=== PATIENT | male | born 1975 | race Caucasian/White ===

== ENCOUNTER → 2016-10-20 | Outpatient (CLI) | payer BC ==
[2016-10-20 10:28] LABS: BLOOD UREA NITROGEN 14 mg/dl (7-18); BUN/CREATININE RATIO 15.1 (10-20); CALCIUM 8.8 mg/dl (8.5-10.1); CARBON DIOXIDE 28 mmol/L (21-32); CHLORIDE 105 mmol/L (98-107); GLUCOSE 107 mg/dl (70-99); POTASSIUM 4.1 mmol/L (3.5-5.1); SODIUM 140 mmol/L (136-145)
[2016-10-20 10:41] LABS: THYROID STIMULATING HORMONE 0.725 uIu/ml (0.300-4.500)
--- NOTE | 2016-10-20 12:21 | EXERCISE STRESS ECHO ---
*NOTICE TO RECEIVING REPUBL[employer] AGENCY This information is strictly Confidential and protected under [place] law. [place] law prohibits you from making any further disclosure of this information unless further disclosure is expressly permitted by the written consent of the person to whom it pertains or is authorized by law. A general authorization for the release of medical or other information is not sufficient for this purpose. Hospital accepts no responsibility if the information is made available to any other person, INCLUDING THE PATIENT. Interpretation Summary * Name: KALANI GRIJALVA Study Date: 10/20/2016 09:58 AM BP: 131/78 mmHg * Patient Location: [facility] HR: 73 * : 1975 (M/d/yyyy) Gender: Male Height: 72 in * Age: 41 yrs Ethnicity: CA Weight: 185 lb * Ordering Physician: Sandra Landers * Performed By: Carlton Bradley RCS * * Reason For Study: CHEST PAIN * BSA: 2.1 m2 * -- Conclusions -- * 1. Negative exercise stress echo for ischemia at 97% MPHR. * 2. Negative stress ECG for ischemia. No stress induced arrhythmias. * 3. Normal functional capacity. Achieved 10.6 METs. Normal hemodynamic response to exercise. * 4. Normal resting LV function. LVEF 55-60%. Borderline dilated RV with normal RV function. No significant valvular pathology. * 5. No prior studies for comparison. Procedure Details * ECHOEX, CPT #[id number] * ECHO COLOR FLOW, CPT #[id number] * ECHO DOPPLER, CPT #[id number] Left Ventricle * The left ventricle is grossly normal size. * There is normal left ventricular wall thickness. * Ejection Fraction = 55-60%. * Resting wall motion: Normal. Stress wall motion: Appropriate increase in Left ventricular systolic function and decrease in cavity size. No stress induced segmental wall motion abnormalities. * The left ventricular ejection fraction increases normally with stress. The left ventricular end-systolic cavity size reduces post-stress (normal response). The left ventricular wall motion with stress is normal. Right Ventricle * The right ventricle is borderline dilated. * The right ventricular systolic function is normal. Atria * The left atrial size is normal. * Right atrial size is normal. * No ASD detected; PFO is not assessed. Mitral Valve * The mitral valve is grossly normal. * There is no mitral valve stenosis. * Significant mitral regurgitation is absent. Tricuspid Valve * The tricuspid valve is not well visualized, but is grossly normal. * Tricuspid stenosis is absent. * Significant tricuspid regurgitation is absent. Aortic Valve * The aortic valve opens well. * The aortic valve is trileaflet. * No hemodynamically significant valvular aortic stenosis. * There is no significant aortic regurgitation. Pulmonic Valve * The pulmonic valve is not well seen, but is grossly normal. * Mild pulmonic valvular regurgitation. Great Vessels * The aortic root and proximal ascending aorta are normal sized. Pericardium * There is no pericardial effusion. Stress Parameters * Normal baseline electrocardiogram. * Stress ECG: No ST changes. No arrhythmias. * No arrhythmia were noted with stress. * Rest heart rate was '73' BPM. * Rest blood pressure was '131/78' * Maximum heart rate achieved was 176 bpm. * Maximum heart rate was 97 % of maximum age-predicted heart rate. * Maximum blood pressure was '172/72' * Total exercise time was '9:21' * Maximum exercise MET level achieved was '10.6' METS * Maximum treadmill speed was '4.2' miles per hour. * Maximum treadmill elevation was '16'% grade. * Exercise was terminated due to 'fatigue after achieving target heart rate' * Normal blood pressure response to exercise. MMode 2D Measurements and Calculations IVSd 1.0 cm IVSs 1.2 cm LVIDd 4.6 cm LVIDs 3.1 cm LVPWd 0.98 cm LVPWs 1.2 cm IVS/LVPW 1.1 FS 32.3 % EDV(Teich) 96.1 ml ESV(Teich) 37.8 ml EF(Teich) 60.7 % EDV(cubed) 95.8 ml ESV(cubed) 29.7 ml EF(cubed) 69.0 % % IVS thick 20.4 % % LVPW thick 26.0 % LV mass(C)d 158.4 grams LV mass(C)dI 76.8 grams/m\S\2 LV mass(C)s 119.6 grams LV mass(C)sI 58.0 grams/m\S\2 CO(Teich) 3.9 l/min CI(Teich) 1.9 l/min/m\S\2 SV(Teich) 58.3 ml SI(Teich) 28.3 ml/m\S\2 CO(cubed) 4.4 l/min CI(cubed) 2.1 l/min/m\S\2 SV(cubed) 66.1 ml SI(cubed) 32.1 ml/m\S\2 Ao root diam 3.4 cm Ao root area 9.1 cm\S\2 ACS 1.7 cm LA dimension 3.3 cm LA/Ao 0.97 LVAd ap4 37.3 cm\S\2 LVLd ap4 9.2 cm EDV(MOD-sp4) 125.0 ml LVAs ap4 19.6 cm\S\2 LVLs ap4 6.9 cm ESV(MOD-sp4) 47.0 ml EF(MOD-sp4) 62.4 % LVAd ap2 38.3 cm\S\2 LVLd ap2 9.3 cm EDV(MOD-sp2) 131.0 ml LVAs ap2 18.9 cm\S\2 LVLs ap2 6.8 cm ESV(MOD-sp2) 44.0 ml EF(MOD-sp2) 66.4 % CO(MOD-sp4) 5.2 l/min CI(MOD-sp4) 2.5 l/min/m\S\2 SV(MOD-sp4) 78.0 ml SI(MOD-sp4) 37.8 ml/m\S\2 CO(MOD-sp2) 5.8 l/min CI(MOD-sp2) 2.8 l/min/m\S\2 SV(MOD-sp2) 87.0 ml SI(MOD-sp2) 42.2 ml/m\S\2 Doppler Measurements and Calculations MV E max bill 65.0 cm/sec MV A max bill 51.5 cm/sec MV E/A 1.3 MV P1/2t max bill 83.0 cm/sec MV P1/2t 58.8 msec MVA(P1/2t) 3.7 cm\S\2 MV dec slope 413.6 cm/sec\S\2 MV dec time 0.21 sec Ao V2 max 109.1 cm/sec Ao max PG 4.8 mmHg PA V2 max 106.7 cm/sec PA max PG 4.6 mmHg PI max bill 187.1 cm/sec PI max PG 14.0 mmHg PI dec slope 142.0 cm/sec\S\2 PI P1/2t 386.1 msec TR max bill 197.8 cm/sec
== END | disposition home or self-care (01) ==
LOC: C.CPL 09:11
PROVIDERS: ATTEND Internal Medicine Geriatric Medicine
DX: R00.2 Palpitations (principal); R07.9 Chest pain, unspecified